=== PATIENT | male | born 1960 | race Caucasian/White ===

== ENCOUNTER 2018-11-14 12:32 | Emergency (ER) | payer OTHER ==
[~2018-11-14] VITALS: Ht 373.4 cm; Wt 81.6 kg
[2018-11-14] MEDS ORDERED: METFORMIN HCL500 M3 (12:55)
== END 2018-11-14 22:30 | disposition home or self-care (01) ==
LOC: ER 12:32
DX: S80.01XA Contusion of right knee, initial encounter (principal); W18.39XA Other fall on same level, initial encounter; Y93.89 Activity, other specified; Y92.098 Other place in other non-institutional residence as the place of occurrence of the external cause; Y99.8 Other external cause status

== ENCOUNTER 2018-11-23 20:10 | Inpatient (IN) | payer OTHER ==
[~2018-11-23] VITALS: Ht 172.7 cm; Wt 80.7 kg
[~2018-11-23 20:10] MED LIST: METFORMIN HCL500 M3
--- NOTE | 2018-11-23 20:34 | NUR ---
SE RECIBE PTE EL CUAL HACE 2 SEMANAS PRESENTO EN TRAUMA EN TOBILLO DERECHO, EN EL LUCIANO DE HOY PTE PRESENTA PIE INFLAMADO EN AREA DE [place] PRESENTA SUPURACION Y BLISTER. EN PRIMER DEDO DE PIE AFECTADO PRESSENTA ULCERA LA CUAL ESTA BAJO TRATAMIENTO. SE CUBRE AREA AFECTADAS Y SE COLOCA PTE EN JOS.
--- NOTE | 2018-11-23 21:02 | NUR ---
SE ORIENTA PTE SOBRE TRATAMIENTO. SE MAMIE MUESTRAS DE EMILEE Y SE CANALIZA PERIFERALMENTE POR RN ANGELES QUIEN ADMINISTRA MEDICAMENTOS ORDENADOS. PTE PENDIENTE A RE-EVALAUCION POR MEDICO DE TURNO.
--- NOTE | 2018-11-23 23:48 | NUR ---
SE RECIBE PTE ALERTA Y ORIENTADO X3 EN CAMA CON BARANDAS ELEVADAS. SE RECIBE PTE CANALIZADO AREA MANUEL DE EDEMA Y DE ENROJECIMIENTO. PTE EN ESPERA DE CONSULTA CON .
--- NOTE | 2018-11-24 07:03 | NUR ---
PACIENTE ALERTA Y ORIENTADO X3. EN CAMA EN POSICION SEMI-SENTADO CON BARANDAS ELEVADAS. IV F LUID PATENTE Y MANUEL DE EDEMA Y ERITEMA. PACIENTE CONSULTADO CON DR. Armando PAYNE. SE MANTIENE BAJO OBSERVACION POR CAMBIOS SIGNIFICATIVOS.
== END 2018-12-14 19:01 | disposition designated cancer center or children's hospital (05) | DRG 579 ==
LOC: ER 20:10 → MEDJ 11-24 09:40
PROVIDERS: ADMIT Internal Medicine
PROC: BW28ZZZ Computerized Tomography (CT Scan) of Head (ICD-10-PCS; 2018-11-24)
PROC: 0HBKXZZ Excision of Right Lower Leg Skin, External Approach (ICD-10-PCS; principal; 2018-11-25)
PROC: BQ3DZZZ Magnetic Resonance Imaging (MRI) of Right Lower Leg (ICD-10-PCS; 2018-11-25)
PROC: 0J9N3ZX Drainage of Right Lower Leg Subcutaneous Tissue and Fascia, Percutaneous Approach, Diagnostic (ICD-10-PCS; 2018-11-26)
PROC: 0J9N0ZZ Drainage of Right Lower Leg Subcutaneous Tissue and Fascia, Open Approach (ICD-10-PCS; 2018-11-30)
PROC: 0KBS0ZZ Excision of Right Lower Leg Muscle, Open Approach (ICD-10-PCS; 2018-12-03)
PROC: BW40ZZZ Ultrasonography of Abdomen (ICD-10-PCS; 2018-12-03)
PROC: 30233N1 Transfusion of Nonautologous Red Blood Cells into Peripheral Vein, Percutaneous Approach (ICD-10-PCS; 2018-12-04)
PROC: 0KBS0ZZ Excision of Right Lower Leg Muscle, Open Approach (ICD-10-PCS; 2018-12-07)
PROC: 0KBS0ZZ Excision of Right Lower Leg Muscle, Open Approach (ICD-10-PCS; 2018-12-09)
DX: L03.115 Cellulitis of right lower limb (principal); G92 Toxic encephalopathy; M72.6 Necrotizing fasciitis; M60.061 Infective myositis, right lower leg; R65.10 Systemic inflammatory response syndrome (SIRS) of non-infectious origin without acute organ dysfunction; E87.1 Hypo-osmolality and hyponatremia; E46 Unspecified protein-calorie malnutrition; L97.518 Non-pressure chronic ulcer of other part of right foot with other specified severity; E11.65 Type 2 diabetes mellitus with hyperglycemia; R41.81 Age-related cognitive decline; R29.6 Repeated falls; D64.89 Other specified anemias; I10 Essential (primary) hypertension; N40.0 Benign prostatic hyperplasia without lower urinary tract symptoms; G62.89 Other specified polyneuropathies; W18.39XA Other fall on same level, initial encounter; B96.1 Klebsiella pneumoniae [K. pneumoniae] as the cause of diseases classified elsewhere; B95.2 Enterococcus as the cause of diseases classified elsewhere; B95.1 Streptococcus, group B, as the cause of diseases classified elsewhere; Z79.4 Long term (current) use of insulin
CPT/HCPCS: 73221